=== PATIENT | female | born 1940 | race Caucasian/White ===

== ENCOUNTER 2018-07-25 12:31 | Emergency (ER) | payer MEDICARE ==
[~2018-07-25] VITALS: Ht 157.5 cm; Wt 72.6 kg
[~2018-07-25 12:31] MED LIST: ATORVASTATIN CA40 MG PO; AUGMENTIN 875875 MG PO; BAYER CHEWABLE81 MG PO; CIPROFLOXACIN500 M3 PO; COREG25 MG PO; FLAGYL500 MG PO; MEDROL DOSPAK21 TAB PO; NITROGLYCERIN0.4 MG SUBLING; NORCO 5-325 TA1 EACH PO; PRINZIDE 20-121 EACH PO; VALIUM5 MG PO; VICODIN; ZESTRIL20 MG PO
[2018-07-25] MEDS ORDERED: LISINOPRIL-HCT1 EAC1 PO (12:42)
[2018-07-25 12:57] LABS: ABSOLUTE EOSINOPHILS 0.2 thou/uL (0.0-0.7); ABSOLUTE LYMPHOCYTES 4.3 thou/uL (0.8-5.3); ABSOLUTE MONOCYTES 0.6 thou/uL (0.0-1.2); ABSOLUTE NEUTROPHILS 4.4 thou/uL (1.6-8.1); BASOPHILS 0.2 %; EOSINOPHILS 2.4 %; HEMATOCRIT 48.4 % (37.0-47.0); HEMOGLOBIN 16.5 gm/dL (12.0-15.0); LYMPHOCYTES 44.9 %; MCH 29.1 pg (26.0-34.0); MCHC 34.1 g/dL (28.0-37.0); MCV 85.3 fL (80.0-100.0); MONOCYTES 6.5 %; MPV 8.6 fl. (7.2-11.1); NUCLEATED RBCS 0 /100WBC; PLATELET COUNT* 264 thou/uL (150-400); RBC 5.67 mil/uL (4.20-5.00); RDW-CV 15.3 % (10.5-14.5); WBC 9.5 thou/uL (4.0-11.0)
[2018-07-25 13:02] LABS: CALCIUM 9.7 mg/dL (8.5-10.1); CREATININE 1.2 mg/dL (0.6-1.3); POTASSIUM 4.3 mmol/L (3.5-5.1)
[2018-07-25 13:06] LABS: ALBUMIN 3.9 g/dL (3.4-5.0); TOTAL BILIRUBIN 0.4 mg/dL (<0.1-1.0); TOTAL PROTEIN 7.7 g/dL (6.4-8.2)
[2018-07-25 14:06] LABS: URINE BILIRUBIN NEGATIVE (Negative); URINE BLOOD NEGATIVE (Negative); URINE CLARITY CLEAR; URINE COLOR YELLOW; URINE GLUCOSE-RANDOM NEGATIVE (Negative); URINE KETONES NEGATIVE (Negative); URINE LEUKOCYTES-REFLEX TRACE (Negative); URINE NITRITE-REFLEX NEGATIVE (Negative); URINE PROTEIN NEGATIVE (Negative); URINE UROBILINOGEN 0.2 E.U./dl (0.2-1.0)
[2018-07-25] MEDS ORDERED: CITRATE OF MAG296 ML PO (14:08)
[2018-07-25] MEDS ORDERED: NORCO 5-325 TA1 EACH PO (14:08)
[2018-07-25] MEDS ORDERED: MIRALAX17 GM PO (14:08)
[2018-07-25 14:12] VITALS: BP 179/96
[2018-07-25 14:23] LABS: BACTERIA-REFLEX 1-9 Few /HPF (None Seen); CASTS None Seen /LPF (None Seen); CRYSTALS None Seen /LPF (None Seen); SQUAMOUS 4-10 Moderate /LPF (0-3); URINE RBC 0-2 Rare /HPF (0-2); URINE WBC-REFLEX 0-5 Rare /HPF (0-5)
== END 2018-07-25 14:13 | disposition home or self-care (01) ==
LOC: M.ERS 12:31
PROVIDERS: Physician Assistant
DX: R10.32 Left lower quadrant pain (principal); M54.5 Low back pain; I10 Essential (primary) hypertension; Z96.651 Presence of right artificial knee joint; Z95.5 Presence of coronary angioplasty implant and graft; Z90.49 Acquired absence of other specified parts of digestive tract; Z88.7 Allergy status to serum and vaccine

== ENCOUNTER 2020-05-22 16:10 | Emergency (ER) | payer OTHER, MEDICARE ==
[~2020-05-22] VITALS: Ht 157.5 cm; Wt 72.6 kg
[~2020-05-22 16:10] MED LIST changes: +CITRATE OF MAG296 ML PO; +LISINOPRIL-HCT1 EAC1 PO; +MIRALAX17 GM PO
[2020-05-22 18:02] VITALS: BP 201/126
== END 2020-05-22 18:04 | disposition home or self-care (01) ==
LOC: M.ERS 16:10
DX: S80.01XA Contusion of right knee, initial encounter (principal); I10 Essential (primary) hypertension; Z90.49 Acquired absence of other specified parts of digestive tract; Z98.890 Other specified postprocedural states; Z95.5 Presence of coronary angioplasty implant and graft; Z96.651 Presence of right artificial knee joint; Z88.7 Allergy status to serum and vaccine; V49.59XA Passenger injured in collision with other motor vehicles in traffic accident, initial encounter; Y93.89 Activity, other specified; Y92.89 Other specified places as the place of occurrence of the external cause; Y99.8 Other external cause status